=== PATIENT | female | born 2000 | race African-American/Black ===

== ENCOUNTER → 2019-03-26 | Emergency (ER) | payer OTHER ==
[~2019-03-26] VITALS: Ht 160 cm; Wt 55.0 kg
[~2019-03-26] MED LIST: AZITHROMYCIN 500 MG TABLET PO ONE; CEFTRIAXONE SODIUM 250 MG/VIAL IM ONE
[2019-03-26 17:45] VITALS: BP 111/65
[2019-03-26 19:18] LABS: CLARITY URINE CLOUDY (CLEAR); COLOR URINE YELLOW (YELLOW); KETONES URINE NEGATIVE (NEGATIVE); LEUKOCYTE ESTERASE URINE 2+ (NEGATIVE); NITRITE URINE NEGATIVE (NEGATIVE); OCCULT BLOOD URINE NEGATIVE (NEGATIVE); PROTEIN URINE TRACE (NEGATIVE); SPECIFIC GRAVITY URINE 1.027 (1.005-1.030)
[2019-03-29 04:07] LABS: CHLAMYDIA TRACHOMATIS NAA Negative (Negative); NEISSERIA GONORRHOEAE NAA Positive (Negative)
== END | disposition left against medical advice (07) ==
LOC: ER 16:51
DX: Z20.2 Contact with and (suspected) exposure to infections with a predominantly sexual mode of transmission (principal); F17.210 Nicotine dependence, cigarettes, uncomplicated; Z98.890 Other specified postprocedural states
CPT/HCPCS: 81003; 87491; 87591; 96372; 99283; J0696

== ENCOUNTER 2019-05-24 02:28 | Emergency (ER) | payer MEDICAID, OTHER ==
[~2019-05-24] VITALS: Ht 160 cm; Wt 64.0 kg
[2019-05-24] MEDS ORDERED: TETRACAINE 0.5% OPHTH DROPS 4ML LEFTEYE ONE (03:45)
[2019-05-24] MEDS ORDERED: FLUORESCEIN SODIUM 1MG/STRIP LEFTEYE ONE (03:45)
[2019-05-24 04:23] VITALS: BP 111/56
== END 2019-05-24 04:22 | disposition home or self-care (01) ==
LOC: ER 02:28
DX: H57.89 Other specified disorders of eye and adnexa (principal); Z98.890 Other specified postprocedural states
CPT/HCPCS: 99283

== ENCOUNTER 2019-06-03 12:40 | Emergency (ER) | payer MEDICAID ==
[~2019-06-03] VITALS: Ht 160 cm; Wt 75.0 kg
[2019-06-03 17:46] VITALS: BP 121/79
[2019-06-03] MEDS ORDERED: CEFTRIAXONE SODIUM 250 MG/VIAL IM ONE (18:30)
[2019-06-03] MEDS ORDERED: LIDOCAINE HCL 1% 20ML VIAL (Pyxis) INJ INFIL ONE (18:30)
[2019-06-03] MEDS ORDERED: AZITHROMYCIN 500 MG TABLET PO ONE (18:30)
[2019-06-06 04:07] LABS: CHLAMYDIA TRACHOMATIS NAA Negative (Negative); NEISSERIA GONORRHOEAE NAA Positive (Negative)
== END 2019-06-03 20:10 | disposition home or self-care (01) ==
LOC: ER 12:40
DX: R30.0 Dysuria (principal); Z98.890 Other specified postprocedural states
CPT/HCPCS: 81025; 87491; 87591; 96372; 99283; J0696; J3490

== ENCOUNTER 2019-06-18 02:06 | Emergency (ER) | payer MEDICAID ==
[~2019-06-18] VITALS: Ht 160 cm; Wt 64.0 kg
[2019-06-18 03:06] LABS: CLARITY URINE CLOUDY (CLEAR); COLOR URINE YELLOW (YELLOW); KETONES URINE NEGATIVE (NEGATIVE); LEUKOCYTE ESTERASE URINE 1+ (NEGATIVE); NITRITE URINE NEGATIVE (NEGATIVE); OCCULT BLOOD URINE NEGATIVE (NEGATIVE); PROTEIN URINE NEGATIVE (NEGATIVE); SPECIFIC GRAVITY URINE 1.027 (1.005-1.030); UROBILINOGEN URINE 0.2 E.U./dL (0.2-1.0)
[2019-06-18] MEDS ORDERED: CEFTRIAXONE SODIUM 250 MG/VIAL IM NR (04:30)
[2019-06-18] MEDS ORDERED: AZITHROMYCIN 500 MG TABLET PO NR (04:30)
[2019-06-18 04:45] VITALS: BP 106/78
== END 2019-06-18 05:10 | disposition home or self-care (01) ==
LOC: ER 02:06
DX: Z20.2 Contact with and (suspected) exposure to infections with a predominantly sexual mode of transmission (principal); Z98.890 Other specified postprocedural states
CPT/HCPCS: 81003; 81025; 96372; 99283; J0696

== ENCOUNTER 2019-07-08 18:26 | Emergency (ER) | payer MEDICAID ==
[~2019-07-08] VITALS: Ht 160 cm; Wt 64.0 kg
[2019-07-08 22:41] LABS: CLARITY URINE CLOUDY (CLEAR); COLOR URINE YELLOW (YELLOW); KETONES URINE 3+ (NEGATIVE); LEUKOCYTE ESTERASE URINE 1+ (NEGATIVE); NITRITE URINE NEGATIVE (NEGATIVE); OCCULT BLOOD URINE NEGATIVE (NEGATIVE); PH URINE 6.5 (4.5-8.0); PROTEIN URINE TRACE (NEGATIVE); SPECIFIC GRAVITY URINE 1.032 (1.005-1.030)
[2019-07-08 23:09] VITALS: BP 128/79
== END 2019-07-08 23:09 | disposition home or self-care (01) ==
LOC: ER 18:26
DX: Z32.01 Encounter for pregnancy test, result positive (principal); Z98.890 Other specified postprocedural states
CPT/HCPCS: 81003; 81025; 99283

== ENCOUNTER 2022-08-14 00:25 | Emergency (ER) | payer OTHER ==
[~2022-08-14] VITALS: Ht 160 cm; Wt 70.2 kg
[2022-08-14 00:35] VITALS: BP 127/68
[2022-08-14 03:33] LABS: CLARITY URINE TURBID (CLEAR); COLOR URINE YELLOW (YELLOW); KETONES URINE TRACE (NEGATIVE); LEUKOCYTE ESTERASE URINE 1+ (NEGATIVE); NITRITE URINE NEGATIVE (NEGATIVE); OCCULT BLOOD URINE NEGATIVE (NEGATIVE); PROTEIN URINE TRACE (NEGATIVE); SPECIFIC GRAVITY URINE 1.025 (1.005-1.030)
[2022-08-14] MEDS ORDERED: CEFTRIAXONE SODIUM 500 MG/VIAL IM NR (04:15)
[2022-08-14] MEDS ORDERED: LIDOCAINE HCL 1% 20ML VIAL (Pyxis) INJ INFIL NR (04:15)
[2022-08-14] MEDS ORDERED: DOXY-456 MT (06:24)
[2022-08-14] MEDS ORDERED: METR-167 MT (06:24)
[2022-08-17 04:10] LABS: NEISSERIA GONORRHOEAE NAA Negative (Negative)
== END 2022-08-14 06:36 | disposition home or self-care (01) ==
LOC: ER 00:25
DX: N76.0 Acute vaginitis (principal); N72 Inflammatory disease of cervix uteri; Z98.890 Other specified postprocedural states
CPT/HCPCS: 81003; 81025; 87210; 87491; 87591; 96372; 99283; J0696; J3490; Z7610